=== PATIENT | female | born 1990 | race Two or more races ===

== ENCOUNTER 2022-07-06 08:56 | Emergency (ER) | payer OTHER ==
[~2022-07-06] VITALS: Ht 165.1 cm; Wt 108.9 kg
[2022-07-06 09:05] VITALS: BP 120/70
[2022-07-06] MEDS ORDERED: IBUP-1953 PO (09:19)
== END 2022-07-06 09:39 | disposition home or self-care (01) ==
LOC: ER 09:02
DX: J06.9 Acute upper respiratory infection, unspecified (principal); B97.89 Other viral agents as the cause of diseases classified elsewhere; Z20.822 Contact with and (suspected) exposure to COVID-19
CPT/HCPCS: 99283; 87426; C9803